=== PATIENT | female | born 1960 | race Caucasian/White ===

== ENCOUNTER 2017-11-08 13:21 | Emergency (ER) | payer OTHER ==
[2017-11-08 13:29] VITALS: BP 153/88; PULSE 88; TEMP 99.1; BMI 36.6
--- NOTE | 2017-11-08 14:12 | PDOC ---
History of Present Illness - General Chief Complaint: Respiratory Stated Complaint: CONGESTED Time Seen by Provider: 11/08/17 13:38 History Source: Patient Exam Limitations: No Limitations - History of Present Illness Initial Comments: 11/08/17 14:11 57-year-old female presents the ED with intermittent cough for the past 2 months associated with postnasal drip, sore throat and intermittent posttussis vomiting. Patient states symptoms are worse at night but denies orthopnea lower extremity edema chest pain or shortness of breath. Patient denies recent travel , recent illness, recent sick contacts. Patient states was a heavy smoker up until one year ago and did have frequent episodes of bronchitis. Timing/Duration: reports: other (2 months) Severity: reports: mild Possible Cause: Yes: occasional episodes Modifying Factors: improves with: coughing Associated Symptoms: reports: cough, nasal congestion, sore throat. denies: fever/chills Past History - Travel Traveled outside of the country in the last 30 days: No - Past Medical History Allergies/Adverse Reactions: Allergies Allergy/AdvReac Type Severity Reaction Status Date / Time povidone-iodine Allergy Verified 11/08/17 13:30 [From Betadine] soap [From Betadine] Allergy Verified 11/08/17 13:30 Home Medications: Ambulatory Orders NK [No Known Home Medication] 11/08/17 COPD: No - Suicide/Smoking/Psychosocial Hx Smoking History: Former smoker Have you smoked in the past 12 months: No Information on smoking cessation initiated: No Hx Alcohol Use: No Drug/Substance Use Hx: No Substance Use Type: None Patient Lives Alone: No Respiratory Specific PMHX - Complaint Specific PMHX Bronchitis: Yes Review of Systems - Review of Systems Able to Perform ROS?: Yes Constitutional: No: Symptoms Reported HEENTM: Yes: Nose Congestion, Throat Pain Respiratory: Yes: Cough Cardiac (ROS): No: Symptoms Reported ABD/GI: No: Symptoms Reported : No: Symptoms Reported Musculoskeletal: No: Symptoms Reported Integumentary: No: Symptoms Reported Neurological: No: Symptoms reported *Physical Exam - Vital Signs Last Vital Signs Temp Pulse Resp BP Pulse Ox 99.1 F 88 18 153/88 96 11/08/17 13:24 11/08/17 13:24 11/08/17 13:24 11/08/17 13:24 11/08/17 13:24 - Physical Exam General Appearance: Yes: Nourished, Appropriately Dressed. No: Apparent Distress HEENT: positive: TMs Normal, Pharynx Normal, Nasal Congestion. negative: Pharyngeal Erythema Neck: positive: Supple Respiratory/Chest: positive: Lungs Clear, Normal Breath Sounds. negative: Respiratory Distress, Accessory Muscle Use Cardiovascular: positive: Regular Rhythm, Regular Rate. negative: Murmur Gastrointestinal/Abdominal: positive: Soft. negative: Tenderness Extremity: positive: Normal Capillary Refill Integumentary: positive: Normal Color, Warm, Moist Neurologic: positive: Motor Strength 5/5 (ambulatory) ED Treatment Course - RADIOLOGY Radiology Studies Ordered: Category Date Time Status CHEST PA & LAT [RAD] Stat Radiology 11/08/17 14:05 Ordered Medical Decision Making - Medical Decision Making 11/08/17 14:22 Patient with intermittent cough for the past 2 months associated with nasal congestion and sore throat. Patient quit told he possibly one year ago but states frequent episodes of bronchitis. Patient concerning for pulmonary congestion versus infiltrate. Patient ordered for the lateral x-ray . patient states is up-to-date on vaccinations including Tdap. 11/08/17 14:24 CXR -. Discharge home with zpak and flonase *DC/Admit/Observation/Transfer Diagnosis at time of Disposition: Nasal congestion, Cough - Referrals Referrals: Quinten Castrejon MD [Primary Care Provider] - - Patient Instructions Printed Discharge Instructions: DI for Acute Bronchitis, DI for Nasal Congestion Additional Instructions: Please use Flonase as prescribed. Take and complete antibiotic. Drink plenty of fluids and may take Motrin for any discomfort. - Post Discharge Activity
== END 2017-11-08 14:36 | disposition home or self-care (01) ==
LOC: JERFT 13:21
DX: J20.9 Acute bronchitis, unspecified (principal)
CPT/HCPCS: 71046-TC; 99281-25

== ENCOUNTER 2025-07-10 02:03 | Emergency (ER) | payer OTHER ==
[2025-07-10 02:20] VITALS: BP 182/75; PULSE 76; RESP 20; TEMP 98.1; BMI 37.9
[2025-07-10] MEDS: morphine CARPU-JECT 4 MG/1 ML DISP.SYRIN IVPUSH ONE (02:46)
[2025-07-10] MEDS: LACTATED RINGERS SOLUTION 1000 ML INFUS.BAG IV ONE (02:47)
[2025-07-10 03:23] LABS: ABSOLUTE IMMATURE GRANULOCYTES 0.02 x10^3/uL (0.0-0.031); BASOPHILS # 0.06 x10^3/uL (0.01-0.08); EOSINOPHIL % 2.8 % (0.7-5.8); EOSINOPHILS # 0.23 x10^3/uL (0.04-0.36); MCHC 32.3 g/dl (32.2-35.5); MEAN CELL VOLUME 94.3 fl (79.4-94.8); MEAN PLT VOLUME 10.6 fl (9.4-12.3); MONOCYTE # 0.79 x10^3/uL (0.24-0.86); MONOCYTE % 9.7 % (4.7-12.5); RDW 13.4 % (12.4-16.4)
[2025-07-10 03:43] LABS: GLUCOSE,RANDOM 118.0 mg/dL (74-106)
[2025-07-10 03:44] LABS: TOT PROT 8.3 g/dl (6.4-8.2)
[2025-07-10 03:45] LABS: CO2 22.0 mmol/L (21-32)
[2025-07-10 03:46] LABS: ALK PHOS 125.0 U/L (40-150)
[2025-07-10 03:49] LABS: SGOT/AST 51.0 U/L (5-34); SGPT/ALT 28.0 U/L (0-55)
[2025-07-10 03:50] LABS: CREATININE 0.89 mg/dL (0.55-1.3)
[2025-07-10 03:50] LABS: EPI CELLS 15 /uL (0-25.1); HYALINE CASTS 1 /uL (0-3.1); URINE APPEARANCE CLEAR; URINE BACTERIA 161 /uL (0-1359); URINE BILIRUBIN NEGATIVE (NEGATIVE); URINE COLOR YELLOW; URINE GLUCOSE (UA) NEGATIVE (NEGATIVE); URINE KETONE TRACE (NEGATIVE); URINE LEUK ESTERASE 1+ (NEGATIVE); URINE NITRITE NEGATIVE (NEGATIVE); URINE PROTEIN TRACE (NEGATIVE); URINE RBC 230 /uL (0-23.9); URINE UROBILINOGEN 0.2 mg/dL (0.2-1.0); URINE WBC 28 /uL (0-25.8)
[2025-07-10 04:47] LABS: HCV DIAGNOSTIC IN-HOUSE W/RFLX NON-REACTIVE (NONREACTIVE)
[2025-07-10 04:48] LABS: HIV INTERPRETATION NEGATIVE (NEGATIVE)
== END 2025-07-10 04:42 | disposition home or self-care (01) ==
LOC: JER 02:03
PROC: 3E033NZ Introduction of Analgesics, Hypnotics, Sedatives into Peripheral Vein, Percutaneous Approach (ICD-10-PCS; principal; 2025-07-10)
DX: N13.6 Pyonephrosis (principal); R10.31 Right lower quadrant pain; R61 Generalized hyperhidrosis; R11.2 Nausea with vomiting, unspecified
CPT/HCPCS: 36415; 74176-TC; 80053; 81003; 83735; 85025; 86803; 87086; 87389; 93005; 93010; 99285-25